=== PATIENT | female | born 1960 | race Caucasian/White ===

== ENCOUNTER 2022-04-29 15:37 | Outpatient (CLI) | payer BC, SELFPAY ==
[2022-04-29 17:27] LABS: Chloride* 93 mmol/L (96-114); Potassium* 3.7 mmol/L (3.6-5.1); Sodium* 126 mmol/L (135-149)
[2022-04-29 17:30] LABS: Carbon Dioxide* 29 mmol/L (20-32); Creatinine* 0.6 mg/dL (0.5-1.5); Estimated Glomerular Filt Rate 102 ml/min
[2022-04-29 17:31] LABS: Blood Urea Nitrogen* 14 mg/dL (7-30); Calcium* 8.1 mg/dL (8.4-10.6)
[2022-04-29 17:45] LABS: Glucose* 628 mg/dL (60-115)
== END 2022-04-29 15:38 | disposition home or self-care (01) ==
PROVIDERS: PCP Family Medicine; Visit Provider Internal Medicine
DX: R60.9 Edema, unspecified (principal)
CPT/HCPCS: 80048

== ENCOUNTER 2022-05-05 09:38 | Outpatient (CLI) | payer BC, SELFPAY ==
[2022-05-05 12:17] LABS: Chloride* 92 mmol/L (96-114)
[2022-05-05 12:18] LABS: Potassium* 3.5 mmol/L (3.6-5.1); Sodium* 126 mmol/L (135-149)
[2022-05-05 12:20] LABS: Creatinine* 0.6 mg/dL (0.5-1.5); Estimated Glomerular Filt Rate 102 ml/min
[2022-05-05 12:21] LABS: Blood Urea Nitrogen* 19 mg/dL (7-30); Calcium* 8.3 mg/dL (8.4-10.6); Carbon Dioxide* 30 mmol/L (20-32)
[2022-05-05 12:32] LABS: Glucose* 600 mg/dL (60-115)
== END 2022-05-05 09:39 | disposition home or self-care (01) ==
PROVIDERS: PCP Family Medicine; Visit Provider Internal Medicine
DX: I10 Essential (primary) hypertension (principal); E11.9 Type 2 diabetes mellitus without complications
CPT/HCPCS: 80048

== ENCOUNTER 2022-05-11 14:03 | Outpatient (CLI) | payer BC, SELFPAY | END 2022-05-11 14:04 | disposition home or self-care (01) | LOC: RAD 14:04 | PROVIDERS: PCP Internal Medicine; Visit Provider Internal Medicine | DX: R01.1 Cardiac murmur, unspecified (principal); I34.0 Nonrheumatic mitral (valve) insufficiency; I31.39 Other pericardial effusion (noninflammatory) | CPT/HCPCS: 93306 ==

== ENCOUNTER 2022-05-12 10:24 | Outpatient (CLI) | payer BC, SELFPAY ==
[2022-05-12 15:08] LABS: Albumin* 2.7 g/dL (3.3-5.0); Chloride* 100 mmol/L (96-114); Potassium* 3.3 mmol/L (3.6-5.1); Sodium* 131 mmol/L (135-149)
[2022-05-12 15:11] LABS: Alanine Aminotransferase* 20 U/L (4-35); Alkaline Phosphatase* 220 U/L (40-150); Aspartate Amino Transferase* 23 U/L (12-35); Bilirubin Total* 0.3 mg/dL (0.1-1.5); Blood Urea Nitrogen* 17 mg/dL (7-30); Carbon Dioxide* 32 mmol/L (20-32); Creatinine* 0.8 mg/dL (0.5-1.5); Estimated Glomerular Filt Rate 84 ml/min; Glucose* 307 mg/dL (60-115); Total Protein* 5.7 g/dL (6.0-8.3)
[2022-05-12 15:12] LABS: Calcium* 7.7 mg/dL (8.4-10.6)
== END 2022-05-12 10:25 | disposition home or self-care (01) ==
LOC: NFLDREF 10:24
PROVIDERS: PCP Internal Medicine; Visit Provider Internal Medicine
DX: E11.9 Type 2 diabetes mellitus without complications (principal); I10 Essential (primary) hypertension
CPT/HCPCS: 80053

== ENCOUNTER 2022-05-22 14:37 | Outpatient (CLI) | payer BC, SELFPAY ==
--- NOTE | 2022-05-22 15:00 | CRLHL7_ITS ---
For Patients: As a result of the Cures Act, medical imaging exams and procedure reports are released immediately into your electronic medical record. You may view this report before your referring provider. If you have questions, please contact your health care provider. INDICATION: Edema. COMPARISON: None. TECHNIQUE: A compression venous ultrasound exam was performed of both lower extremities using santos scale imaging, color Doppler and spectral Doppler analysis. FINDINGS: Right: Sonographic imaging of the right lower extremity demonstrates normal compressibility and color Doppler venous blood flow within the common femoral, deep femoral, and proximal greater saphenous veins. Within the thigh the femoral vein is patent and compressible. At a lower level the popliteal, peroneal, and posterior tibial veins also show normal compressibility and color Doppler venous blood flow. Left: Sonographic imaging of the left lower extremity demonstrates normal compressibility and color Doppler venous blood flow within the common femoral, deep femoral, and proximal greater saphenous veins. Within the thigh the femoral vein is patent and compressible. At a lower level the popliteal, peroneal, and posterior tibial veins also show normal compressibility and color Doppler venous blood flow. IMPRESSION: 1. Negative for acute DVT in the lower extremities. 2. Subcutaneous edema bilaterally. Dictated by Marisa Jaquez MD @ 05/22/2022 7:56:39 PM (Electronically Signed)
== END 2022-05-22 14:38 | disposition home or self-care (01) ==
LOC: US 14:38
PROVIDERS: PCP Internal Medicine; Visit Provider Internal Medicine
DX: R60.9 Edema, unspecified (principal)
CPT/HCPCS: 93970

== ENCOUNTER 2022-05-28 12:24 | Inpatient (IN) | payer BC, SELFPAY ==
[2022-05-28] VITALS (32 sets, daily range): BP systolic 132–211; BP diastolic 85–104; PULSE 88–108; RESP 20–40; TEMP 36.1–36.6; O2SAT 86–92; BMI 29.4; BMI 28.9
--- NOTE | 2022-05-28 13:31 | CRLHL7_ITS ---
For Patients: As a result of the Century Cures Act, medical imaging exams and procedure reports are released immediately into your electronic medical record. You may view this report before your referring provider. If you have questions, please contact your health care provider. Indication: Shortness of breath Comparison: Two-view chest April 29, 2022 Technique: Single AP view chest Findings: There is hyperinflation and chronic interstitial change. There is left basilar pleural effusion. There are markedly increased interstitial markings consistent with pulmonary edema. There is no pneumothorax. The cardiac silhouette is partially obscured. The bony thorax is grossly intact. Impression: Left basilar pleural effusion with diffusely increased interstitial markings likely representing pulmonary edema and/or developing infiltrates. Dictated by Michael Guidry MD @ 05/28/2022 2:54:07 PM (Electronically Signed)
--- NOTE | 2022-05-28 13:33 | ED_ITS ---
HPI - SOB/Dyspnea General Chief Complaint: Shortness of Breath/Dyspnea Stated Complaint: Short of breath, mitral valve leak Time Seen by Provider: 05/28/22 12:30 History of Present Illness HPI Narrative: This 62-year-old female comes in reporting worsening shortness of breath that began last evening. She states that she has shortness of breath even at rest and very significantly with any kind of movement. She states that she did not sleep well last night at all because of shortness of breath. She does have history of CHF with large pedal edema. She states that she had her Lasix increased from 10 mg to 40 mg daily but reports that she still is not urinating frequently. She does not report any fevers. She does have an occasional cough. She denies having any chest pain. She does have a leaky mitral valve. She has a history of smoking and apparently is continuing to smoke. She has poorly controlled diabetes in her history. Related Data Home Medications Medication Instructions Recorded Confirmed aspirin 81 mg tablet,delayed 81 mg PO DAILY 05/12/22 05/28/22 release (Adult Low Dose Aspirin) loratadine 10 mg tablet (Claritin) 10 mg PO DAILY 05/12/22 05/28/22 blood sugar diagnostic (Blood 05/20/22 05/28/22 Glucose Test strips) lisinopril 10 mg tablet 10 mg PO DAILY 05/28/22 05/28/22 Previous Rx's Medication Instructions Recorded pen needle, diabetic 31 gauge x #100 ea 05/11/2207/02 (Comfort EZ Pen [place]) insulin glargine 100 unit/mL (3 20 unit (0.2 mL) subcut QPM DM #15 05/20/22 mL) subcutaneous pen (Lantus mL Solostar U-100 Insulin) flash glucose scanning reader #1 ea 05/27/22 (FreeStyle Liborio 2 [place]) flash glucose sensor (FreeStyle #1 ea 05/27/22 Lib[place] 2 Sensor kit) furosemide 20 mg tablet (Lasix) 20 mg PO BID Edema #90 tabs 05/27/22 glimepiride 4 mg tablet 4 mg PO QAM #90 tabs 05/27/22 metoprolol tartrate 25 mg tablet 12.5 mg PO BID #120 tabs 05/27/22 Allergies Allergy/AdvReac Type Severity Reaction Status Date / Time No Known Drug Allergies Allergy Verified 05/28/22 12:35 Review of Systems Status of ROS: Reports: 10 or more systems reviewed and unremarkable except as noted in History and below Narrative: Constitutional: No fevers, no weight gain or loss. Eyes: No discharge. No vision changes. HENT: No congestion, no sore throat, no ear pain. Cardiovascular: No chest pain, no palpitations. Respiratory: Shortness of breath at rest and certainly with any kind of exertion. Gastrointestinal: No abdominal pain, no vomiting, no diarrhea. Genitourinary: No dysuria, no hematuria. Musculoskeletal: Normal range of motion. Skin: No rashes, no pruritis. Neurological: No dizziness, weakness, sensory change, speech change. Endo/Heme/Allergies: No bruising or bleeding. No polydipsia. Pysch: no suicidality, no anxiety, no insomnia. All other systems reviewed and are negative. [facility] Medical History (Updated 05/28/22 @ 17:33 by Enzo Cota MD) Anemia during (09/26/10) Cellulitis Diabetes Edema Eye swelling Heart murmur History of anemia (09/26/10) Hyperlipidemia (11/11/10) Mitral regurgitation Surgical History (Updated 04/28/22 @ 10:20 by Aylin Lindsey) History of tonsillectomy (09/26/10) Social History Smoking Status: Current every day smoker Do you use any of these nicotine containing products: None How often do you have a drink containing alcohol: monthly or less How many standard drinks containing alcohol do you have on a typical day: 1 or 2 AUDIT-C Alcohol total score: 1 Non-prescribed substance use: denies use Little interest or pleasure in doing things: not at all Feeling down, depressed, or hopeless: several days service: No Exam Narrative: Exam Narrative: Constitutional: Well-developed, well-nourished, no acute distress. HEENT: Normocephalic, atraumatic. Neck: Normal range of motion. Nontender. Supple. Heart: Regular. No murmurs. Normal rate. Intact distal pulses. Lungs: Use of accessory muscles for breathing. Tachypnea. Abdomen: Normal bowel sounds. Nontender. No rebound tenderness. Genitalia: Deferred. Back: No midline tenderness. Normal range of motion. Extremities: Normal range of motion. No injury. Skin: Intact. No rash. Warm. No erythema or pallor. Neurologic: No altered sensation. No weakness. Alert and oriented. Psychiatric: No suicidality. No anxiety or depression. No insomnia. Nursing notes and vitals signs are reviewed. Const: Vital Signs, click to edit/add: Vital Signs - 24 hr 05/28/22 12:36 05/28/22 12:57 05/28/22 12:58 Temperature 96.9 F L Pulse Rate 95 95 Pulse Rate [Right Pulse Oximeter] 99 Respiratory Rate 40 H Blood Pressure 211/104 H Blood Pressure [Le ft Upper Arm] 187/98 H Pulse Oximetry 88 90 92 Oxygen Delivery Me thod Room Air 05/28/22 13:00 05/28/22 13:15 05/28/22 13:30 Temperature Pulse Rate 96 91 94 Pulse Rate [Right Pulse Oximeter] Respiratory Rate Blood Pressure Blood Pressure [Le ft Upper Arm] Pulse Oximetry 91 90 92 Oxygen Delivery Me thod 05/28/22 13:45 05/28/22 14:00 05/28/22 14:15 Temperature Pulse Rate 95 93 95 Pulse Rate [Right Pulse Oximeter] Respiratory Rate Blood Pressure Blood Pressure [Le ft Upper Arm] Pulse Oximetry 90 91 90 Oxygen Delivery Me thod 05/28/22 14:30 05/28/22 14:45 05/28/22 15:00 Temperature Pulse Rate 102 H 99 93 Pulse Rate [Right Pulse Oximeter] Respiratory Rate Blood Pressure Blood Pressure [Le ft Upper Arm] Pulse Oximetry 89 87 L 89 Oxygen Delivery Me thod 05/28/22 15:15 05/28/22 15:16 Temperature Pulse Rate 98 97 Pulse Rate [Right Pulse Oximeter] Respiratory Rate Blood Pressure 144/94 H Blood Pressure [Le ft Upper Arm] Pulse Oximetry 92 89 Oxygen Delivery Me thod Course Vital Signs Vital signs: Initial Vital Signs Temperature 96.9 F L 05/28/22 12:36 Temperature Source Temporal Artery Scan 05/28/22 12:36 Pulse Rate 99 05/28/22 12:36 Pulse Rhythm 05/28/22 12:36 Respiratory Rate 40 H 05/28/22 12:36 Blood Pressure 187/98 H 05/28/22 12:36 Blood Pressure Mean 127 05/28/22 12:36 Pulse Oximetry 88 05/28/22 12:36 Oxygen Delivery Method 05/28/22 12:36 Vital Signs Temperature 96.9 F L 05/28/22 12:36 Pulse Rate 99 05/28/22 12:36 Respiratory Rate 40 H 05/28/22 12:36 Blood Pressure 187/98 H 05/28/22 12:36 Pulse Oximetry 88 05/28/22 12:36 Oxygen Delivery Method 05/28/22 12:36 Temperature 96.9 F L 05/28/22 12:36 Pulse Rate 97 05/28/22 15:16 Respiratory Rate 40 H 05/28/22 12:36 Blood Pressure 144/94 H 05/28/22 15:16 Pulse Oximetry 89 05/28/22 15:16 Oxygen Delivery Method 05/28/22 12:36 MDM - SOB/Dyspnea Lab Data Labs: Lab Results 05/28/22 05/28/22 05/28/22 Range/Units 13:32 13:33 13:50 WBC 11.27 H (4.50-11.00) K/uL RBC 3.89 L (4.00-5.20) m/uL Hgb 11.8 L (12.0-16.0) gm/dL Hct 35.1 (33.0-51.0) % MCV 90 (80-100) fL MCH 30 (26-34) pg MCHC 34 (32-36) gm/dL RDW Coeff of Yefri 12.4 (11.5-15.5) % Plt Count 514 H (140-440) K/uL Neut % (Auto) 79.9 H (42.0-72.0) % Lymph % (Auto) 11.7 L (20-44) % Sumner % (Auto) 5.2 (0.0-11.0) % Eos % (Auto) 1.9 (0.0-7.0) % Baso % (Auto) 0.4 (0.0-3.0) % Neut # (Auto) 9.00 H (1.7-7.0) K/uL Lymph # (Auto) 1.30 (0.90-2.90) K/uL [place]ner # (Auto) 0.60 (0.00-0.90) K/UL Eos # (Auto) 0.20 (0.00-0.50) K/uL Baso # (Auto) 0.00 (0.00-0.30) K/uL D-Dimer Quant (PE/DVT) (0.00-0.50) ug/ml Sodium (135-149) mmol/L Potassium (3.6-5.1) mmol/L Chloride (96-114) mmol/L Carbon Dioxide (20-32) mmol/L BUN (7-30) mg/dL Creatinine (0.5-1.5) mg/dL Estimated Creat Clear Estimated GFR ml/min Glucose (60-115) mg/dL Calcium (8.4-10.6) mg/dL C-Reactive Protein (0.5-1.0) mg/dL NT-Pro-B Natriuret Pep pg/mL SARS-CoV-2 (PCR) Negative SARS-CoV-2 (Negative) Influenza Type A (PCR) Negative PCR FLU A (Negative) Influenza Type B (PCR) Negative PCR FLU B (Negative) POC Troponin I 0.01 (0.01-0.04) ng/ml 05/28/22 05/28/22 05/28/22 Range/Units 13:50 13:50 13:50 WBC (4.50-11.00) K/uL RBC (4.00-5.20) m/uL Hgb (12.0-16.0) gm/dL Hct (33.0-51.0) % MCV (80-100) fL MCH (26-34) pg MCHC (32-36) gm/dL RDW Coeff of Yefri (11.5-15.5) % Plt Count (140-440) K/uL Neut % (Auto) (42.0-72.0) % Lymph % (Auto) (20-44) % Sumner % (Auto) (0.0-11.0) % Eos % (Auto) (0.0-7.0) % Baso % (Auto) (0.0-3.0) % Neut # (Auto) (1.7-7.0) K/uL Lymph # (Auto) (0.90-2.90) K/uL [place]ner # (Auto) (0.00-0.90) K/UL Eos # (Auto) (0.00-0.50) K/uL Baso # (Auto) (0.00-0.30) K/uL D-Dimer Quant (PE/DVT) 1.63 H (0.00-0.50) ug/ml Sodium 132 L (135-149) mmol/L Potassium 3.5 L (3.6-5.1) mmol/L Chloride 100 (96-114) mmol/L Carbon Dioxide 28 (20-32) mmol/L BUN 16 (7-30) mg/dL Creatinine 0.7 (0.5-1.5) mg/dL Estimated Creat Clear 46.73 Estimated GFR 98 ml/min Glucose 162 H (60-115) mg/dL Calcium 8.3 L (8.4-10.6) mg/dL C-Reactive Protein 7.3 H (0.5-1.0) mg/dL NT-Pro-B Natriuret Pep 5400 pg/mL SARS-CoV-2 (PCR) (Negative) Influenza Type A (PCR) (Negative) Influenza Type B (PCR) (Negative) POC Troponin I (0.01-0.04) ng/ml Imaging Data Chest x-ray: Radiologist's impression: Left basilar pleural effusion with diffusely increased interstitial markings likely representing pulmonary edema and/or developing infiltrates. CT scan - chest: Radiologist's impression: No pulmonary embolism identified. Moderate bilateral pleural effusions. Upper lobe predominant patchy ground-glass opacities most likely related to pulmonary edema, or less likely multifocal infection or inflammation. ECG Data Attestation: I personally reviewed and interpreted this ECG as follows: Interpretation: Normal sinus rhythm. Rate is 92 beats per minute. There are no ST or T-wave abnormalities. Discharge Plan Discharge Clinical Impression: Congestive heart failure Patient Disposition: Admitted As Inpatient Condition: Unchanged Prescriptions: No Action loratadine [Claritin] 10 mg tablet 10 mg PO DAILY aspirin [Adult Low Dose Aspirin] 81 mg tablet,delayed release (DR/EC) 81 mg PO DAILY furosemide [Lasix] 20 mg tablet 20 mg PO BID Qty: 90 3RF glimepiride 4 mg tablet 4 mg PO QAM Qty: 90 0RF Rx Instructions: administer with breakfast metoprolol tartrate 25 mg tablet 12.5 mg PO BID Qty: 120 0RF (DME) Blood Glucose Test Strip See Rx Instructions .Route Rx Instructions: Use to check blood glucose 3 times daily insulin glargine [Lantus Solostar U-100 Insulin] 100 unit/mL (3 mL) insulin pen 20 unit subcut QPM Qty: 15 0RF lisinopril 10 mg tablet 10 mg PO DAILY (DME) pen needle, diabetic [Comfort EZ Pen [place]] 31 gauge x 3/16 needle See Rx Instructions .Route Qty: 100 3RF Rx Instructions: Patient to use BID (DME) FreeStyle Liborio 2 [place] Misc See Rx Instructions .Route Qty: 1 0RF Rx Instructions: As directed (DME) FreeStyle Liborio 2 Sensor Kit See Rx Instructions .Route Qty: 1 0RF Rx Instructions: As directed Follow Up/Referrals: Carlin Trinh MD [Primary Care Provider] -
[2022-05-28 14:03] LABS: Troponin, Point-of-Care* 0.01 ng/ml (0.01-0.04)
[2022-05-28] MEDS: FUROSEMIDE 10 MG/ML inj 40 MG IVP ×2 (14:11→19:12)
[2022-05-28 14:15] LABS: Basophils Percent Auto 0.4 % (0.0-3.0); Eosinophils Percent Auto 1.9 % (0.0-7.0); Hematocrit 35.1 % (33.0-51.0); Hemoglobin* 11.8 gm/dL (12.0-16.0); Immature Granulocytes Pct Auto 0.9 %; Lymphocytes Percent Auto 11.7 % (20-44); Mean Corpuscular HGB Conc 34 gm/dL (32-36); Mean Corpuscular Hemoglobin 30 pg (26-34); Mean Corpuscular Volume 90 fL (80-100); Monocytes Percent Auto 5.2 % (0.0-11.0); Neutrophils Percent Auto 79.9 % (42.0-72.0); Platelet Count* 514 K/uL (140-440); RDW Coefficient of Variation % 12.4 % (11.5-15.5); Red Blood Count 3.89 m/uL (4.00-5.20); White Blood Count* 11.27 K/uL (4.50-11.00)
[2022-05-28 14:16] LABS: PCR FLU A Negative PCR FLU A (Negative); PCR FLU B Negative PCR FLU B (Negative)
[2022-05-28 14:17] LABS: Slide Review Reflex No
[2022-05-28 14:21] LABS: D Dimer Quantitative* 1.63 ug/ml (0.00-0.50)
[2022-05-28 14:28] LABS: SARS PCR* Negative SARS-CoV-2 (Negative)
[2022-05-28 14:40] LABS: NT Pro B Type NatriureticPept* 5400 pg/mL
--- NOTE | 2022-05-28 14:51 | CRLHL7_ITS ---
For Patients: As a result of the Century Cures Act, medical imaging exams and procedure reports are released immediately into your electronic medical record. You may view this report before your referring provider. If you have questions, please contact your health care provider. INDICATION: SHORT OF BREATH, ELEVATED D DIMER. TECHNIQUE: CT chest PE was acquired with 100 cc Omnipaque 350 IV contrast. COMPARISON: None. FINDINGS: Heart and vasculature: Contrast opacification of the pulmonary arterial tree is adequate. No sign of pulmonary embolism. Heart size is normal. Thoracic aorta and pulmonary artery are normal in caliber.Coronary artery calcifications are noted. Moderate stenosis of the proximal left subclavian artery. Lungs and pleura: Peripheral reticular opacities likely related to underlying lung scarring. Bilateral upper lobe ground-glass patchy opacities. Moderate bilateral pleural effusions. Adjacent mild compressive atelectasis. Lymph nodes/mediastinum: No mediastinal, hilar, or axillary adenopathy. Chest wall: No masses. Upper abdomen: No acute or significant findings. Bones: Unremarkable for age. IMPRESSION: No pulmonary embolism identified. Moderate bilateral pleural effusions. Upper lobe predominant patchy ground-glass opacities most likely related to pulmonary edema, or less likely multifocal infection or inflammation. Please note that all CT scans at this facility use dose modulation, iterative reconstruction, and/or weight-based dosing when appropriate to reduce radiation dose to as low as reasonably achievable. Dictated by Arsalan Dowell MD @ 05/28/2022 5:27:08 PM (Electronically Signed)
[2022-05-28 15:25] LABS: Chloride* 100 mmol/L (96-114); Potassium* 3.5 mmol/L (3.6-5.1); Sodium* 132 mmol/L (135-149)
[2022-05-28 15:28] LABS: Blood Urea Nitrogen* 16 mg/dL (7-30); Carbon Dioxide* 28 mmol/L (20-32); Creatinine* 0.7 mg/dL (0.5-1.5); Est. Creatinine Clearance* 46.73; Estimated Glomerular Filt Rate 98 ml/min
[2022-05-28 15:29] LABS: Calcium* 8.3 mg/dL (8.4-10.6); Glucose* 162 mg/dL (60-115)
[2022-05-28 15:31] LABS: C Reactive Protein* 7.3 mg/dL (0.5-1.0)
--- NOTE | 2022-05-28 17:46 | P.IMHP_ITS ---
Hospitalist- H&P: SHELIA History of Present Illness Date Seen: 05/28/22 Chief complaint: Short of breath, mitral valve leak Narrative: Twila Bryant is a 62 year old female admitted through the emergency department with progressive edema over the past 6+ weeks and 2 days of dyspnea. Patient reports that starting before Goldy she was noting swelling in her feet and ankles bilaterally. This is gotten progressively worse over the last 6 weeks or so. She was started on furosemide 10 mg daily. This did not seem to help. The dose was increased gradually to 20 mg twice a day yesterday. Yesterday she noted increased trouble breathing. She had orthopnea and nocturnal dyspnea she was not not able to sleep well last night. Because that she came to the emergency room. She has no previous history of diagnosis of heart failure. On 05/11/2022 she had an echocardiogram which showed normal left ventricular size and function with an ejection fraction of 65-70%. She had normal right ventricular size and function. Aortic valve was sclerotic without stenosis. The mitral valve is tethered with moderate mitral regurgitation. She was referred to Cardiology for her mitral regurgitation and has an appointment on June 26. She has a previous history of SVT. There was an attempt at ablation for this years ago which was apparently unsuccessful though she reports that she has not had an episode of SVT in years. She is not aware of palpitations or tachy dysrhythmia. She does not have a history of coronary disease. She has not had any chest pain. She has not had cold or cough or fever. She has been smoking for about 40 years half pack of cigarettes per day but does not have a diagnosis of COPD. She has diabetes mellitus. Blood sugars have been poorly controlled until recently when her blood sugars have been better controlled and occasionally too low. When she woke up this morning her blood sugar was 59. Three weeks ago she was started on Lantus 10 units at bedtime. That has been increased to 20 units at bedtime. She also takes glimepiride 4 mg daily. Review of Systems Narrative: She reports he is generally doing well other than her edema and shortness of breath. No other symptoms of illness. [facility] Medical History Anemia during (09/26/10) Cellulitis Diabetes Edema Eye swelling Heart murmur History of anemia (09/26/10) Hyperlipidemia (11/11/10) Hypertension Mitral regurgitation Subclavian steal syndrome Supraventricular tachycardia (09/26/10) Tobacco use (09/26/10) Surgical History (Updated 05/28/22 @ 17:57 by Shan Bhatt MD) History of tonsillectomy (09/26/10) History of wisdom tooth extraction Social History (Updated 05/28/22 @ 18:00 by Shan Bhatt MD) Narrative: She lives in [place] with her . She works at [employer], a division of [employer]. She smokes a half pack of cigarettes a day. She drinks alcohol a couple times a month. Her or her daughter, Viv Francois of [place], are healthcare larry of contract attorney. Code status is full Smoking Status: Current every day smoker Do you use any of these nicotine containing products: None How often do you have a drink containing alcohol: monthly or less How many standard drinks containing alcohol do you have on a typical day: 1 or 2 AUDIT-C Alcohol total score: 1 Non-prescribed substance use: denies use Little interest or pleasure in doing things: not at all Feeling down, depressed, or hopeless: several days service: No Meds Home Medications and Allergies Home Medications Medication Instructions Recorded Confirmed Type aspirin 81 mg tablet,delayed 81 mg PO DAILY 05/12/22 05/28/22 History release (Adult Low Dose Aspirin) loratadine 10 mg tablet (Claritin) 10 mg PO DAILY 05/12/22 05/28/22 History blood sugar diagnostic (Blood 05/20/22 05/28/22 History Glucose Test strips) lisinopril 10 mg tablet 10 mg PO DAILY 05/28/22 05/28/22 History Allergies Allergy/AdvReac Type Severity Reaction Status Date / Time No Known Drug Allergies Allergy Verified 05/28/22 12:35 Allergies/Adverse Reaction Comments: Metformin caused intractable nausea Exam Narrative: Exam Narrative: She is alert and appears in no distress. She gives her own history. Eyes are normal. Oropharynx with dry mucous membranes. Neck is supple she has mild jugular venous distension. No mass. Respirations with diminished breath sounds and bibasilar crackles. Cardiovascular: S1, S2, 1/6 systolic murmur. No gallop or rub. Abdomen: Bowel sounds active. Abdomen is soft without tenderness or mass. External genitalia normal. Extremities with 3+ edema in both legs up to the knees. Intact pedal pulses. Const: Vital Signs, click to edit/add: Vital Signs - 24 hr 05/28/22 12:36 05/28/22 12:57 05/28/22 12:58 Temperature 96.9 F L Pulse Rate 95 95 Pulse Rate [Right Pulse Oximeter] 99 Respiratory Rate 40 H Blood Pressure 211/104 H Blood Pressure [Le ft Upper Arm] 187/98 H Pulse Oximetry 88 90 [facility] 05/28/22 13:00 05/28/22 13:15 05/28/22 13:30 Temperature Pulse Rate 96 91 94 Pulse Rate [Right Pulse Oximeter] Respiratory Rate Blood Pressure Blood Pressure [Le ft Upper Arm] Pulse Oximetry 91 90 92 [facility] 05/[facility]/22 13:45 05/28/22 14:00 05/28/22 14:15 Temperature Pulse Rate 95 93 95 Pulse Rate [Right Pulse Oximeter] Respiratory Rate Blood Pressure Blood Pressure [Le ft Upper Arm] Pulse Oximetry 90 91 90 [facility] 05/[facility]/22 14:30 05/28/22 14:45 05/28/22 15:00 Temperature Pulse Rate 102 H 99 93 Pulse Rate [Right Pulse Oximeter] Respiratory Rate Blood Pressure Blood Pressure [Le ft Upper Arm] Pulse Oximetry 89 87 L [facility] 05/[facility]/22 15:15 05/28/22 15:16 05/28/22 15:17 Temperature Pulse Rate 98 97 97 Pulse Rate [Right Pulse Oximeter] Respiratory Rate Blood Pressure 144/94 H Blood Pressure [Le ft Upper Arm] Pulse Oximetry 92 89 90 [facility] 05/28/22 15:34 05/28/22 15:35 05/28/22 16:00 Temperature Pulse Rate 105 H 108 H 101 H Pulse Rate [Right Pulse Oximeter] Respiratory Rate Blood Pressure Blood Pressure [Le ft Upper Arm] Pulse Oximetry 88 86 L 87 L [facility] 05/28/22 16:02 05/28/22 16:15 05/28/22 16:30 Temperature Pulse Rate 102 H 94 95 Pulse Rate [Right Pulse Oximeter] Respiratory Rate Blood Pressure 132/89 Blood Pressure [Le ft Upper Arm] Pulse Oximetry 88 90 90 [facility] 05[facility]22 16:31 05/28/22 16:45 05/28/22 17:00 Temperature Pulse Rate 96 92 96 Pulse Rate [Right Pulse Oximeter] Respiratory Rate Blood Pressure 152/89 H Blood Pressure [Le ft Upper Arm] Pulse Oximetry 90 89 89 Oxygen Delivery Me thod 05/28/22 17:01 05/28/22 17:15 05/28/22 17:30 Temperature Pulse Rate 96 97 104 H Pulse Rate [Right Pulse Oximeter] Respiratory Rate Blood Pressure 149/89 H Blood Pressure [Le ft Upper Arm] Pulse Oximetry 89 90 87 L Oxygen Delivery Me thod 05/28/22 17:32 Temperature Pulse Rate 104 H Pulse Rate [Right Pulse Oximeter] Respiratory Rate Blood Pressure 156/85 H Blood Pressure [Le ft Upper Arm] Pulse Oximetry 87 L Oxygen Delivery Me thod Documenting provider has reviewed patient's vital signs: yes Hospitalist - H&P: Result Labs Labs: Short CBC 05/28/22 Range/Units 13:50 WBC 11.27 H (4.50-11.00) K/uL Hgb 11.8 L (12.0-16.0) gm/dL Hct 35.1 (33.0-51.0) % Plt Count 514 H (140-440) K/uL BMP 05/28/22 13:50 Sodium 132 L Potassium 3.5 L Chloride 100 Carbon Dioxide 28 BUN 16 Creatinine 0.7 Glucose 162 H Calcium 8.3 L Assessment and Plan Assessment and plan (1) Congestive heart failure: Problem comment: Patient has pulmonary edema, bilateral pleural effusions, lower extremity edema, orthopnea and PND. All suggest biventricular heart failure. Will provide IV furosemide tonight then increase oral furosemide tomorrow. Will also increase her beta-emmie as her blood pressure and pulse are both elevated. Replace potassium. Status: Acute (2) Mitral regurgitation: Problem comment: Follow-up with cardiology on June 26. Medical management in the meantime Status: Acute (3) Diabetes: Problem comment: Monitor blood sugars and adjust treatment. Status: Acute (4) Hypertension: Problem comment: Increase metoprolol due to hypertension and tachycardia. Increased diuresis should also help Status: Acute (5) Tobacco use: Problem comment: Recommend smoking cessation Status: Acute (6) Hyperlipidemia: Problem comment: Recommend statin Status: Acute Plan Patient is admitted to the hospital for diuresis. Anticipate discharge in the next 1-2 days. Will need increased dose of furosemide, possibly 40 mg twice daily along with supplemental potassium. Increase metoprolol as well to achieve some beta blockade. Recommend smoking cessation and statin therapy. Monitor and manage blood sugars. Total time today is 75 minutes, 45 minutes in coordination of care discussing with patient and other providers management of heart failure and vascular risk factors
[2022-05-28 18:06] LABS: Magnesium* 2.1 mg/dL (1.5-2.6)
[2022-05-28] MEDS: NICOTINE 14 mg PATCH 1 PATCH TRANSDERMA (19:11)
[2022-05-28] MEDS: POTASSIUM BICARB 25 MEQ EFFERVESCENT TAB 50 MEQ PO ×2 (19:12→20:52)
[2022-05-28] MEDS: POTASSIUM CHLORIDE 10 MEQ CAPSULE ER PO (19:12)
--- NOTE | 2022-05-28 19:37 | PC.NURSE ---
shift note: pt admit to rm 256 via wc. pt appears sob at rest. RR36/min. LS with crkls bibasilar. pt has dry cough. Pt denies c.p or pressure. pt has tele in place. cont sats in place with sats reading 92% on RA. IV to rt AC intact/patent. Bilat l/e with 4+ pitting edema. Report given to Regan BURGESS
[2022-05-28] MEDS: METOPROLOL TARTRATE 25 MG TABLET PO (20:53)
[2022-05-28] MEDS: SODIUM CHLORIDE 0.9 % (FLUSH) 10 ML SYRINGE 5 ML IVF (20:53)
[2022-05-29] VITALS (12 sets, daily range): BP systolic 103–134; BP diastolic 63–87; PULSE 78–93; RESP 16–20; TEMP 36.6–37.2; O2SAT 88–93; BMI 28.4
--- NOTE | 2022-05-29 04:34 | PC.NURSE ---
pt blood glucose unstable after HS. Final result after meal is 110 at 3am. Previous two readings were 79 and 59. Denies pain or discomfort. BLE 2+ edema. Up to the bathroom with SBA. No signs of SOB.
[2022-05-29 06:49] LABS: Basophils Absolute Auto 0.03 K/uL (0.00-0.30); Basophils Percent Auto 0.4 % (0.0-3.0); Eosinophils Percent Auto 2.6 % (0.0-7.0); Hematocrit 27.9 % (33.0-51.0); Hemoglobin* 9.4 gm/dL (12.0-16.0); Immature Granulocytes Abs Auto 0.01 K/uL (0.00-0.30); Immature Granulocytes Pct Auto 0.1 %; Lymphocytes Percent Auto 20.6 % (20-44); Mean Corpuscular HGB Conc 34 gm/dL (32-36); Mean Corpuscular Hemoglobin 31 pg (26-34); Mean Corpuscular Volume 91 fL (80-100); Monocytes Percent Auto 7.6 % (0.0-11.0); Neutrophils Absolute Auto 5.35 K/uL (1.7-7.0); Neutrophils Percent Auto 68.7 % (42.0-72.0); Platelet Count* 524 K/uL (140-440); RDW Coefficient of Variation % 12.6 % (11.5-15.5); Red Blood Count 3.07 m/uL (4.00-5.20); White Blood Count* 7.78 K/uL (4.50-11.00)
[2022-05-29 06:56] LABS: Slide Review Reflex No
[2022-05-29 06:59] LABS: Chloride* 102 mmol/L (96-114); Potassium* 3.4 mmol/L (3.6-5.1); Sodium* 133 mmol/L (135-149)
[2022-05-29 07:02] LABS: Creatinine* 0.9 mg/dL (0.5-1.5); Est. Creatinine Clearance* 46.73; Estimated Glomerular Filt Rate 73 ml/min
[2022-05-29 07:03] LABS: Blood Urea Nitrogen* 16 mg/dL (7-30); Calcium* 7.6 mg/dL (8.4-10.6); Carbon Dioxide* 30 mmol/L (20-32); Glucose* 84 mg/dL (60-115)
[2022-05-29 07:06] LABS: C Reactive Protein* 5.8 mg/dL (0.5-1.0)
--- NOTE | 2022-05-29 07:47 | P.IMPN_ITS ---
Progress Note: A&P Assessment and plan (1) Congestive heart failure: Problem details: - on admission, noted to have pulmonary edema, bilateral pleural effusions, lower extremity edema, orthopnea and PND - IV Furosemide given in ED and upon admission - Increase home dose of Lasix, add low dose Spironolactone as well with close monitoring of electrolytes - Increase home dose of Metoprolol - has outpatient Cardiology f/u scheduled in June Status: Acute (2) Mitral regurgitation: Problem details: TTE 04/2022: Final Impressions: 1. Normal LV size, mildly increased wall thickness, normal global systolic function with an estimated EF of 65 - 70%. 2. Right ventricular cavity size is normal, global systolic RV function is normal. 3. Normal left atrium size. 4. The aortic valve is sclerotic, no stenosis and trivial regurgitation. 5. The mitral valve is tethered, moderate mitral regurgitation. 6. Tricuspid valve is normal. 7. Trivial pericardial effusion. - Follow-up with cardiology on June 26, medical management in the meantime Status: Acute (3) Diabetes: Problem details: - A1C >15 in April 2022 - Continue accuchecks, home medications, SSI - amenable to seeing Nutrition team Status: Acute (4) Hypertension: Problem details: - Metoprolol increased 05/28 - Anticipate improvement with increased dose of BB + increased diuretics Status: Acute (5) Tobacco use: Problem details: - Patch in place, recommend smoking cessation Status: Acute Plan - per above - Lovenox for ppx - likely home tomorrow if continued diuresis and improved symptoms on new diuretic regimen Subjective Date Seen: 05/29/22 Interval history: Twila was noted to be hypoglycemic overnight, improved with po intake. Patient's blood pressure and pulse are within normal limits this morning. She is having intermittent dyspnea, but otherwise has no concerns for hospitalist team. Exam Narrative: Exam Narrative: GEN: Alert and oriented, sitting comfortably in bedside chair and having breakfast when I see her HEENT: EOMIs bilaterally, no scleral icterus CV: RRR, systolic murmur heard best at left sternal border without radiation R: LCTA bilaterally without concerning wheezing, + bibasilar rales Ext: + edema, wearing compression stocking Skin: No concerning skin lesions or rashes on exposed skin Neuro: No focal deficits or resting tremor Psych: Appropriate Const: Vital Signs, click to edit/add: Vital Signs - 24 hr 05/28/22 12:36 05/28/22 12:57 05/28/22 12:58 Temperature 96.9 F L Pulse Rate 95 95 Pulse Rate [Brachi al] Pulse Rate [Pulse Oximeter] Pulse Rate [Right Pulse Oximeter] 99 Respiratory Rate 40 H Blood Pressure 211/104 H Blood Pressure [Le ft Arm] Blood Pressure [Le ft Upper Arm] 187/98 H Pulse Oximetry 88 90 92 Oxygen Delivery [facility] Room Air 05/28/22 13:00 05/28/22 13:15 05/28/22 13:30 Temperature Pulse Rate 96 91 94 Pulse Rate [Brachi al] Pulse Rate [Pulse Oximeter] Pulse Rate [Right Pulse Oximeter] Respiratory Rate Blood Pressure Blood Pressure [Le ft Arm] Blood Pressure [Le ft Upper Arm] Pulse Oximetry 91 90 92 [facility] 05/28/22 13:45 05/28/22 14:00 05/28/22 14:15 Temperature Pulse Rate 95 93 95 Pulse Rate [Brachi al] Pulse Rate [Pulse Oximeter] Pulse Rate [Right Pulse Oximeter] Respiratory Rate Blood Pressure Blood Pressure [Le ft Arm] Blood Pressure [Le ft Upper Arm] Pulse Oximetry 90 91 90 [facility] 05/28/22 14:30 05/28/22 14:45 05/28/22 15:00 Temperature Pulse Rate 102 H 99 93 Pulse Rate [Brachi al] Pulse Rate [Pulse Oximeter] Pulse Rate [Right Pulse Oximeter] Respiratory Rate Blood Pressure Blood Pressure [Le ft Arm] Blood Pressure [Le ft Upper Arm] Pulse Oximetry 89 87 L 89 Oxygen Delivery [facility] 05/28/22 15:15 05/28/22 15:16 05/28/22 15:17 Temperature Pulse Rate 98 97 97 Pulse Rate [Brachi al] Pulse Rate [Pulse Oximeter] Pulse Rate [Right Pulse Oximeter] Respiratory Rate Blood Pressure 144/94 H Blood Pressure [Le ft Arm] Blood Pressure [Le ft Upper Arm] Pulse Oximetry 92 89 90 [facility] 05/28/22 15:34 05/28/22 15:35 05/28/22 16:00 Temperature Pulse Rate 105 H 108 H 101 H Pulse Rate [Brachi al] Pulse Rate [Pulse Oximeter] Pulse Rate [Right Pulse Oximeter] Respiratory Rate Blood Pressure Blood Pressure [Le ft Arm] Blood Pressure [Le ft Upper Arm] Pulse Oximetry 88 86 L 87 L [facility] 05/28/22 16:02 05/28/22 16:15 05/28/22 16:30 Temperature Pulse Rate 102 H 94 95 Pulse Rate [Brachi al] Pulse Rate [Pulse Oximeter] Pulse Rate [Right Pulse Oximeter] Respiratory Rate Blood Pressure 132/89 Blood Pressure [Le ft Arm] Blood Pressure [Le ft Upper Arm] Pulse Oximetry 88 90 90 Oxygen Delivery [facility] 05/28/22 16:31 05/28/22 16:45 05/28/22 17:00 Temperature Pulse Rate 96 92 96 Pulse Rate [Brachi al] Pulse Rate [Pulse Oximeter] Pulse Rate [Right Pulse Oximeter] Respiratory Rate Blood Pressure 152/89 H Blood Pressure [Le ft Arm] Blood Pressure [Le ft Upper Arm] Pulse Oximetry 90 89 89 Oxygen Delivery [facility] 05/28/22 17:01 05/28/22 17:15 05/28/22 17:30 Temperature Pulse Rate 96 97 104 H Pulse Rate [Brachi al] Pulse Rate [Pulse Oximeter] Pulse Rate [Right Pulse Oximeter] Respiratory Rate Blood Pressure 149/89 H Blood Pressure [Le ft Arm] Blood Pressure [Le ft Upper Arm] Pulse Oximetry 89 90 87 L Oxygen Delivery [facility] 05/28/22 17:32 05/28/22 18:24 05/28/22 18:35 Temperature 97.8 F Pulse Rate 104 H Pulse Rate [Brachi al] 102 H Pulse Rate [Pulse Oximeter] Pulse Rate [Right Pulse Oximeter] Respiratory Rate 36 H 36 H Blood Pressure 156/85 H Blood Pressure [Le ft Arm] 149/94 H Blood Pressure [Le ft Upper Arm] Pulse Oximetry 87 L 92 92 Oxygen Delivery [facility] Room Air Room Air 05/28/22 19:59 05/28/22 20:04 05/29/22 00:21 Temperature 97.9 F 97.9 F Pulse Rate 88 Pulse Rate [Brachi al] Pulse Rate [Pulse Oximeter] 98 81 Pulse Rate [Right Pulse Oximeter] Respiratory Rate 20 18 Blood Pressure Blood Pressure [Le ft Arm] 141/87 H 121/71 Blood Pressure [Le ft Upper Arm] Pulse Oximetry 92 93 Oxygen Delivery [facility] Room Air Room Air 05/29/22 00:28 05/29/22 04:05 05/29/22 05:13 Temperature 97.8 F Pulse Rate 79 78 Pulse Rate [Brachi al] Pulse Rate [Pulse Oximeter] 80 Pulse Rate [Right Pulse Oximeter] Respiratory Rate 16 Blood Pressure Blood Pressure [Le ft Arm] 103/63 Blood Pressure [Le ft Upper Arm] Pulse Oximetry 90 Oxygen Delivery [facility] Room Air 05/29/22 07:09 Temperature Pulse Rate 81 Pulse Rate [Brachi al] Pulse Rate [Pulse Oximeter] Pulse Rate [Right Pulse Oximeter] Respiratory Rate Blood Pressure Blood Pressure [Le ft Arm] Blood Pressure [Le ft Upper Arm] Pulse Oximetry Oxygen Delivery [facility] Labs Labs: Laboratory Results - last 24 hr 05/28/22 05/28/22 05/28/22 13:32 13:33 13:50 WBC 11.27 H RBC 3.89 L Hgb 11.8 L Hct 35.1 MCV 90 MCH 30 MCHC 34 RDW Coeff of Yefri 12.4 Plt Count 514 H Neut % (Auto) 79.9 H Lymph % (Auto) 11.7 L Falls % (Auto) 5.2 Eos % (Auto) 1.9 Baso % (Auto) 0.4 Neut # (Auto) 9.00 H Lymph # (Auto) 1.30 Falls # (Auto) 0.60 Eos # (Auto) 0.20 Baso # (Auto) 0.00 D-Dimer Quant (PE/DVT) Sodium Potassium Chloride Carbon Dioxide BUN Creatinine Estimated Creat Clear Estimated GFR Glucose Calcium Magnesium C-Reactive Protein NT-Pro-B Natriuret Pep SARS-CoV-2 (PCR) Negative SARS-CoV-2 Influenza Type A (PCR) Negative PCR FLU A Influenza Type B (PCR) Negative PCR FLU B POC Troponin I 0.01 05/28/22 05/28/22 05/28/22 13:50 13:50 13:50 WBC RBC Hgb Hct MCV MCH MCHC RDW Coeff of Yefri Plt Count Neut % (Auto) Lymph % (Auto) Falls % (Auto) Eos % (Auto) Baso % (Auto) Neut # (Auto) Lymph # (Auto) Falls # (Auto) Eos # (Auto) Baso # (Auto) D-Dimer Quant (PE/DVT) 1.63 H Sodium 132 L Potassium 3.5 L Chloride 100 Carbon Dioxide 28 BUN 16 Creatinine 0.7 Estimated Creat Clear 46.73 Estimated GFR 98 Glucose 162 H Calcium 8.3 L Magnesium 2.1 C-Reactive Protein 7.3 H NT-Pro-B Natriuret Pep 5400 SARS-CoV-2 (PCR) Influenza Type A (PCR) Influenza Type B (PCR) POC Troponin I 05/29/22 05/29/22 05:58 05:58 WBC 7.78 RBC 3.07 L Hgb 9.4 L Hct 27.9 L MCV 91 MCH 31 MCHC 34 RDW Coeff of Yefri 12.6 Plt Count 524 H Neut % (Auto) 68.7 Lymph % (Auto) 20.6 Falls % (Auto) 7.6 Eos % (Auto) 2.6 Baso % (Auto) 0.4 Neut # (Auto) 5.35 Lymph # (Auto) 1.60 Falls # (Auto) 0.60 Eos # (Auto) 0.20 Baso # (Auto) 0.03 D-Dimer Quant (PE/DVT) Sodium 133 L Potassium 3.4 L Chloride 102 Carbon Dioxide 30 BUN 16 Creatinine 0.9 Estimated Creat Clear 46.73 Estimated GFR 73 Glucose 84 Calcium 7.6 L Magnesium C-Reactive Protein 5.8 H NT-Pro-B Natriuret Pep SARS-CoV-2 (PCR) Influenza Type A (PCR) Influenza Type B (PCR) POC Troponin I
[2022-05-29] MEDS: lisinopriL 10 MG TABLET PO (08:46)
[2022-05-29] MEDS: ASPIRIN 81 MG TABLET EC PO (08:46)
[2022-05-29] MEDS: METOPROLOL TARTRATE 25 MG TABLET PO ×2 (08:46→20:39)
[2022-05-29] MEDS: FUROSEMIDE 40 MG TABLET PO ×2 (08:46→15:38)
[2022-05-29] MEDS: GLIMEPIRIDE 4 MG TABLET PO (08:47)
[2022-05-29] MEDS: POTASSIUM CHLORIDE 10 MEQ CAPSULE ER PO ×2 (08:47→18:08)
[2022-05-29] MEDS: LORATADINE 10 MG TABLET PO (08:47)
[2022-05-29] MEDS: SODIUM CHLORIDE 0.9 % (FLUSH) 10 ML SYRINGE 5 ML IVF ×2 (09:00→20:40)
--- NOTE | 2022-05-29 15:23 | PC.NURSE ---
Pt had 680 in orally and 400 plus 2 unmeasured voids out on day shift. Twila denies pain. Excellent appetite. Tele indicates NSR. in to visit with patient. Please see eMar for meds given on day shift. Pt walked in hallway with aides after lunch my legs felt weak and tingly. Pt's BG levels were monitored frequently on day shift d/to her c/o visual changes, shakiness. No SS insulin given on day shift. Pt did get Amaryl PO. BG prior to bkfst 59, one hour later BG 97 @0830,BG 130 @ 0935 and prior to lunch 142. Report to Rafal BURGESS for evening shift.
[2022-05-29] MEDS: SPIRONOLACTONE 25 MG TABLET PO (15:38)
[2022-05-29] MEDS: ENOXAPARIN 40 MG/0.4 ML INJ SUBCUT (20:39)
--- NOTE | 2022-05-29 21:42 | PC.NURSE ---
Shift note: No hypoglycemic episode recorded this shift, Blood glucose level were 215 and 243 at 1730 and 2100 respectively and insulin given as per sliding scale. Denied pain and SoB.
--- NOTE | 2022-05-30 02:06 | PC.NURSE ---
Pt feeling Light headed with visual changes @ 0000; BG was 58, Snack given (Pt had two pieces peanut butter toast, two yogurts). @ 0150 Symptoms returned; BG was 69; Snack given (Coosa juice with sugar pk added and ice cream).
[2022-05-30 03:18] VITALS: BP 131/83; PULSE 82; RESP 16; TEMP 36.9; O2SAT 92
--- NOTE | 2022-05-30 04:18 | PC.NURSE ---
Pt remained asymptomatic with Hypoglycemia after 0200 Snack. (See previous note). Pt up IND in room. VS unremarkable. Tele NSR. Reporting zero pain. Afebrile.
[2022-05-30 07:00] VITALS: BP 154/92; PULSE 83; PULSE 86; RESP 16; TEMP 36.7; O2SAT 89
[2022-05-30 07:17] LABS: Basophils Absolute Auto 0.04 K/uL (0.00-0.30); Basophils Percent Auto 0.4 % (0.0-3.0); Eosinophils Absolute Auto 0.24 K/uL (0.00-0.50); Eosinophils Percent Auto 2.6 % (0.0-7.0); Hemoglobin* 9.8 gm/dL (12.0-16.0); Immature Granulocytes Abs Auto 0.03 K/uL (0.00-0.30); Immature Granulocytes Pct Auto 0.3 %; Lymphocytes Absolute Auto 1.97 K/uL (0.90-2.90); Lymphocytes Percent Auto 21.4 % (20-44); Mean Corpuscular HGB Conc 33 gm/dL (32-36); Mean Corpuscular Hemoglobin 30 pg (26-34); Mean Corpuscular Volume 93 fL (80-100); Monocytes Percent Auto 7.5 % (0.0-11.0); Neutrophils Absolute Auto 6.22 K/uL (1.7-7.0); Neutrophils Percent Auto 67.8 % (42.0-72.0); Platelet Count* 568 K/uL (140-440); RDW Coefficient of Variation % 12.9 % (11.5-15.5); Red Blood Count 3.23 m/uL (4.00-5.20); White Blood Count* 9.19 K/uL (4.50-11.00)
[2022-05-30 07:24] LABS: Chloride* 103 mmol/L (96-114); Sodium* 134 mmol/L (135-149)
[2022-05-30 07:25] LABS: Potassium* 4.3 mmol/L (3.6-5.1)
[2022-05-30 07:27] LABS: Est. Creatinine Clearance* 46.73; Estimated Glomerular Filt Rate 64 ml/min
[2022-05-30 07:28] LABS: Blood Urea Nitrogen* 25 mg/dL (7-30); Calcium* 7.7 mg/dL (8.4-10.6); Carbon Dioxide* 31 mmol/L (20-32); Glucose* 72 mg/dL (60-115)
[2022-05-30 07:31] LABS: Slide Review Reflex No
[2022-05-30] MEDS: POTASSIUM CHLORIDE 10 MEQ CAPSULE ER PO (08:49)
[2022-05-30] MEDS: LORATADINE 10 MG TABLET PO (08:50)
[2022-05-30] MEDS: SPIRONOLACTONE 25 MG TABLET PO (08:50)
[2022-05-30] MEDS: METOPROLOL TARTRATE 25 MG TABLET PO (08:50)
[2022-05-30] MEDS: ASPIRIN 81 MG TABLET EC PO (08:50)
[2022-05-30] MEDS: lisinopriL 10 MG TABLET PO (08:50)
[2022-05-30] MEDS: FUROSEMIDE 40 MG TABLET PO (08:51)
[2022-05-30] MEDS: GLIMEPIRIDE 4 MG TABLET PO (08:55)
[2022-05-30 11:00] VITALS: PULSE 87; RESP 18; O2SAT 98
[2022-05-30 11:14] VITALS: BP 156/85; PULSE 83; RESP 16; TEMP 36.7
--- NOTE | 2022-05-30 15:13 | PC.NURSE ---
Saline lock removed from right arm. Discharge instructions went over with patient. All questions were answered and forms were signed. Patient escorted to front entrance via wheelchair and nursing staff.
--- NOTE | 2022-05-30 16:27 | PM.DS1 ---
DS: Providers Provider Time Seen by Provider: 10:30 Date Seen: 05/30/22 Date of admission: 05/29/22 07:00 Primary care physician: Carlin Trinh MD Admitting Clinician: Shan Bhatt MD Consults: 05/28/22 17:34 Consult to Nutrition [CONS] Routine Comment: Reason for consult:: Nutritional Consult Attending Physician on discharge: José Miguel Marsh MD Date of Discharge: 05/30/22 DS: Diagnosis Discharge Diagnosis (1) Dyspnea: Status: Acute (2) Congestive heart failure: Status: Acute Problem details: - on admission, noted to have pulmonary edema, bilateral pleural effusions, lower extremity edema, orthopnea and PND - IV Furosemide given in ED and upon admission - Increase home dose of Lasix, add low dose Spironolactone as well with close monitoring of electrolytes - Increase home dose of Metoprolol - has outpatient Cardiology f/u scheduled in June (3) NYHA class 3 heart failure with preserved ejection fraction: Status: Acute (4) Mitral regurgitation: Status: Acute Problem details: TTE 04/2022: Final Impressions: 1. Normal LV size, mildly increased wall thickness, normal global systolic function with an estimated EF of 65 - 70%. 2. Right ventricular cavity size is normal, global systolic RV function is normal. 3. Normal left atrium size. 4. The aortic valve is sclerotic, no stenosis and trivial regurgitation. 5. The mitral valve is tethered, moderate mitral regurgitation. 6. Tricuspid valve is normal. 7. Trivial pericardial effusion. - Follow-up with cardiology on June 26, medical management in the meantime (5) Normocytic anemia: Status: Acute Problem details: - no evidence of acute bleeding (6) Hypokalemia: Status: Acute (7) Hyponatremia: Status: Acute (8) Hypertension: Status: Acute (9) Hyperlipidemia: Status: Acute Problem details: - Recommend statin as outpatient (10) Tobacco use: Status: Acute Problem details: - Patch in place, recommend smoking cessation DS: Summary Hospital Course Hospital Course: Twila Bryant is a 62 year old female admitted through the emergency department with progressive edema over the past 6+ weeks and 2 days of dyspnea.? Patient reports that starting before Goldy she was noting swelling in her feet and ankles bilaterally.? This is gotten progressively worse over the last 6 weeks or so.? She was started on furosemide 10 mg daily.? This did not seem to help.? The dose was increased gradually to 20 mg twice a day yesterday.? Yesterday she noted increased trouble breathing.? She had orthopnea and nocturnal dyspnea she was not not able to sleep well last night.? Because that she came to the emergency room. She has no previous history of diagnosis of heart failure.? On 05/11/2022 she had an echocardiogram which showed normal left ventricular size and function with an ejection fraction of 65-70%.? She had normal right ventricular size and function.? Aortic valve was sclerotic without stenosis.? The mitral valve is tethered with moderate mitral regurgitation.? She was referred to Cardiology for her mitral regurgitation and has an appointment on June 26. She has a previous history of SVT.? There was an attempt at ablation for this years ago which was apparently unsuccessful though she reports that she has not had an episode of SVT in years.? She is not aware of palpitations or tachy dysrhythmia. She does not have a history of coronary disease.? She has not had any chest pain. She has not had cold or cough or fever.? She has been smoking for about 40 years half pack of cigarettes per day but does not have a diagnosis of COPD. She has diabetes mellitus.? Blood sugars have been poorly controlled until recently when her blood sugars have been better controlled and occasionally too low.? When she woke up this morning her blood sugar was 59.? Three weeks ago she was started on Lantus 10 units at bedtime.? That has been increased to 20 units at bedtime.? She also takes glimepiride 4 mg daily. In hospital we initially gave IV furosemide and then later doubled her dose of oral furosemide to 40 mg twice daily. In the process she has lost 2.2 kg from 73 kg down to 70.8 kg on the day of discharge. She is advised to follow up with her primary care physician in this regard. In-hospital patient was having nighttime hypoglycemic events. As such we changed her administration of Lantus insulin to 20 units in the morning rather than 20 units at bedtime. She is advised to follow up with her primary care physician in this regard. Status at Discharge Functional status at discharge: independent ambulation Overall status at discharge: patient is progressing back to baseline Time Spent with Patient Time attestation: Total time spent providing and/or coordinating discharge services: Time spent: Greater than 30 minutes Exam Narrative: Exam Narrative: Appears comfortable and in no acute distress. Vision and hearing are grossly normal. Angry disposition for having to be in the hospital. Nevertheless cooperative and friendly. Weight down to 70.8 kg, was 73 kg on admission. Blood sugars last night around midnight at at 58. Increases 69 after eating and drinking. Lungs clear to auscultation. Heart tones with regular rhythm. Still has pitting edema pretibially bilaterally. Independent transfer, station, and gait. No tremor, asterixis, or ataxia. Const: Vital Signs, click to edit/add: Vital Signs - 24 hr 05/29/22 19:00 05/29/22 22:44 05/29/22 23:00 Temperature 98.1 F 98.1 F Pulse Rate 83 Pulse Rate [Left A pical] Pulse Rate [Pulse Oximeter] 81 79 Respiratory Rate 18 16 Blood Pressure Blood Pressure [Le ft Arm] 133/87 116/71 Pulse Oximetry 91 92 [facility] Room [facility] 05/29/22 23:35 05/30/22 03:18 05/30/22 07:00 Temperature 98.4 F Pulse Rate Pulse Rate [Left A pical] 82 Pulse Rate [Pulse Oximeter] 79 82 Respiratory Rate 16 16 16 Blood Pressure Blood Pressure [Le ft Arm] 131/83 Pulse Oximetry 92 [facility] 05/30/22 07:00 05/30/22 07:00 05/30/22 11:14 Temperature 98.1 F 98.1 F Pulse Rate 83 83 Pulse Rate [Left A pical] Pulse Rate [Pulse Oximeter] 86 Respiratory Rate 16 16 Blood Pressure 156/85 H Blood Pressure [Le ft Arm] 154/92 H Pulse Oximetry 89 [facility] 05/30/22 11:00 Temperature Pulse Rate Pulse Rate [Left A pical] Pulse Rate [Pulse Oximeter] 87 Respiratory Rate 18 Blood Pressure Blood Pressure [Le ft Arm] Pulse Oximetry 98 [facility] DS: Data Data Completed and Pending Labs on day of discharge: Labs from last 24 hours 05/30/22 05/30/22 05:59 05:59 WBC 9.19 RBC 3.23 L Hgb 9.8 L Hct 30.0 L MCV 93 MCH 30 MCHC 33 RDW Coeff of Yefri 12.9 Plt Count 568 H Neut % (Auto) 67.8 Lymph % (Auto) 21.4 [place] % (Auto) 7.5 Eos % (Auto) 2.6 Baso % (Auto) 0.4 Neut # (Auto) 6.22 Lymph # (Auto) 1.97 [place] # (Auto) 0.70 Eos # (Auto) 0.24 Baso # (Auto) 0.04 Sodium 134 L Potassium 4.3 Chloride 103 Carbon Dioxide 31 BUN 25 Creatinine 1.0 Estimated Creat Clear 46.73 Estimated GFR 64 Glucose 72 Calcium 7.7 L Imaging Chest x-ray: Attestation: I have reviewed the pertinent imaging results. Radiologist's impression: Left basilar pleural effusion with diffusely increased interstitial markings likely representing pulmonary edema and/or developing infiltrates. CT angiogram of the chest: Attestation: I have reviewed the pertinent imaging results. Radiologist's impression: Left basilar pleural effusion with diffusely increased interstitial markings likely representing pulmonary edema and/or developing infiltrates. Discharge Plan Discharge Disposition: Home, Self-Care Date of Admission: 05/29/22 07:00 Attending Provider on Discharge: José Miguel Marsh Primary Care Provider: Carlin Trinh Condition: Unchanged Anticipated Discharge Date/Time: 05/30/22 12:05 Discharge Medications: New insulin glargine [Lantus Solostar U-100 Insulin] 100 unit/mL (3 mL) insulin pen 20 unit subcut QAM Qty: 15 2RF Rx Instructions: No longer take at bedtime, rather take every morning. furosemide 40 mg Tablet 40 mg PO BID@0800,1400 30 Days Qty: 60 2RF potassium chloride 10 mEq Capsule, Extended Release 10 meq PO BIDWM 30 Days Qty: 60 2RF spironolactone 25 mg Tablet 25 mg PO DAILY 30 Days Qty: 30 2RF metoprolol tartrate 25 mg Tablet 25 mg PO BID 30 Days Qty: 60 2RF Continued loratadine [Claritin] 10 mg tablet 10 mg PO DAILY aspirin [Adult Low Dose Aspirin] 81 mg tablet,delayed release (DR/EC) 81 mg PO DAILY glimepiride 4 mg tablet 4 mg PO QAM Qty: 90 0RF Rx Instructions: administer with breakfast lisinopril 10 mg tablet 10 mg PO DAILY metformin 500 mg tablet 500 mg PO QDAY Qty: 90 3RF Discontinued furosemide [Lasix] 20 mg tablet 20 mg PO BID Qty: 90 3RF metoprolol tartrate 25 mg tablet 12.5 mg PO BID Qty: 120 0RF insulin glargine [Lantus Solostar U-100 Insulin] 100 unit/mL (3 mL) insulin pen 20 unit subcut QPM Qty: 15 0RF No Action (DME) Blood Glucose Test Strip See Rx Instructions .Route Rx Instructions: Use to check blood glucose 3 times daily (DME) pen needle, diabetic [Comfort EZ Pen [place]] 31 gauge x 3/16 needle See Rx Instructions .Route Qty: 100 3RF Rx Instructions: Patient to use BID (DME) FreeStyle Liborio 2 [place] Misc See Rx Instructions .Route Qty: 1 0RF Rx Instructions: As directed (DME) FreeStyle Liborio 2 Sensor Kit See Rx Instructions .Route Qty: 1 0RF Rx Instructions: As directed Discharge Orders: Discharge Order (Routine); Ordered 05/30/22 Ordered By: José Miguel Marsh Patient Education: Metoprolol (By mouth), Spironolactone (By mouth), Furosemide (By mouth), Potassium Chloride (By mouth), Insulin Glargine (By injection) (Lantus, Lantus SoloStar, [place], [place]), Heart Failure (GEN), Hypoglycemia in a Person with Diabetes (GEN), Low-Sodium Diet (GEN), What to Do if Your Blood Sugar is Low (GEN) Additional Instructions: 1. Keep cardiology appointment as already scheduled; 2. Continue to work with your primary care physician regarding blood glucose management efforts; 3. Recommend discontinue use of tobacco products all together - consider alternate healthy measures instead of smoking tobacco. Activity Level: No Restrictions and Activity as Tolerated Discharge Diet: Diabetic and 2 gm Sodium Follow Up Appointments: Carlin Trinh MD [Primary Care Provider] - 06/03/22 9:00 am (Please call if you have any questions.) Forms: [employer]ossee Info Instructions
== END 2022-05-30 13:00 | disposition home or self-care (01) | DRG 194 ==
LOC: ED 17:33 → MEDSURG 18:01
PROVIDERS: Admitting Provider Family Medicine; Emergency Provider Emergency Medicine Emergency Medical Services; PCP Internal Medicine; Visit Provider Family Medicine
DX: I11.0 Hypertensive heart disease with heart failure (principal); I50.31 Acute diastolic (congestive) heart failure; I34.0 Nonrheumatic mitral (valve) insufficiency; E11.9 Type 2 diabetes mellitus without complications; E78.5 Hyperlipidemia, unspecified; R06.00 Dyspnea, unspecified; D64.9 Anemia, unspecified; E87.6 Hypokalemia; E87.1 Hypo-osmolality and hyponatremia; R60.9 Edema, unspecified; Z79.4 Long term (current) use of insulin; Z79.84 Long term (current) use of oral hypoglycemic drugs; F17.210 Nicotine dependence, cigarettes, uncomplicated
CPT/HCPCS: 36415; 71045; 71260; 80048; 82962; 83735; 83880; 84484; 85025; 85379; 86140; 87631; 93005; 94761; 99285; G0378; A9270; J1650; J1940; Q9967; S4990

== ENCOUNTER 2022-06-22 09:21 | Outpatient (CLI) | payer BC, SELFPAY | END 2022-06-22 09:22 | disposition home or self-care (01) | PROVIDERS: PCP Internal Medicine; Visit Provider Internal Medicine | DX: I10 Essential (primary) hypertension (principal); E87.6 Hypokalemia; E87.1 Hypo-osmolality and hyponatremia; E78.5 Hyperlipidemia, unspecified; E11.649 Type 2 diabetes mellitus with hypoglycemia without coma | CPT/HCPCS: 80053 ==

== ENCOUNTER 2022-07-28 09:31 | Outpatient (CLI) | payer SELFPAY | END 2022-07-28 09:32 | disposition home or self-care (01) | LOC: NFLDREF 09:32 | PROVIDERS: PCP Internal Medicine; Visit Provider Internal Medicine | DX: E11.9 Type 2 diabetes mellitus without complications (principal); I10 Essential (primary) hypertension; E87.6 Hypokalemia; E87.1 Hypo-osmolality and hyponatremia; E78.5 Hyperlipidemia, unspecified | CPT/HCPCS: 80053 ==

== ENCOUNTER 2023-03-24 10:25 | Outpatient (CLI) | payer OTHER, SELFPAY | END 2023-03-24 10:26 | disposition home or self-care (01) | LOC: NFLDREF 10:26 | PROVIDERS: PCP Internal Medicine; Visit Provider Internal Medicine | DX: I10 Essential (primary) hypertension (principal) | CPT/HCPCS: 80048 ==

== ENCOUNTER 2023-05-03 15:58 | Outpatient (CLI) | payer OTHER, SELFPAY ==
--- OUTSIDE RECORDS SUMMARY | 2023-05-03 16:02 | XMS_ITS | Clinical Summary ---
Author Name Unknown Organization [facility] Address [place], [place] [address] Care Team Providers Care Television Presenter Name Role Phone Nabor Arellano MD Primary Care Provider [phone] Allergies No known active allergies Medications Medication Sig Dispensed Refills Start Date End Date Status furosemide (LASIX) 40 mg tablet Take 40 mg by mouth two times daily. 0 05/30/2022 Active glimepiride (AMARYL) 4 mg tablet TAKE 1 TABLET BY MOUTH EVERY MORNING WITH BREAKFAST. 0 05/27/2022 Active insulin glargine, U-100, 100 unit/mL (3 mL) pen 10 UNIT (0.1 ML) SUBCUTANEOUSLY EVERY EVENING FOR DIABETES MELLITUS 0 05/05/2022 Active potassium chloride (MICRO-K) 10 mEq Controlled-release capsule TAKE 1 CAPSULE BY MOUTH TWICE A DAY WITH MEALS 0 05/30/2022 Active spironolactone (ALDACTONE) 25 mg tablet Take 25 mg by mouth once daily. 0 05/30/2022 Active bd insulin pen needle uf mini 31 gauge x 3/16 PATIENT TO USE ONCE DAILY 0 05/11/2022 Active FreeStyle Liborio 2 Sensor DIRECTED 0 06/11/2022 Active FreeStyle Liborio 2 [place] DIRECTED 0 05/28/2022 Active lisinopriL (PRINIVIL; ZESTRIL) 10 mg tabletIndications: Essential hypertension Take 1 Tablet (10 mg) by mouth two times daily. 180 Tablet 0 06/18/2022 Active metoprolol tartrate (LOPRESSOR) 25 mg tabletIndications: Essential hypertension Take 1 Tablet (25 mg) by mouth two times daily. 180 Tablet 0 06/18/2022 Active Active Problems Problem Noted Date Diagnosed Date Lumbar degenerative disc disease 03/30/2012 Diabetes mellitus, type 2 03/29/2012 Hypertension 03/29/2012 Paroxysmal supraventricular tachycardia 05/31/19 08 Family History Medical History Relation Name Comments Good Health Father Good Health Mother Relation Name Status Comments Father Mother Social History Tobacco Use Types Packs/Day Years Used Date Smoking Tobacco: Every Day Cigarettes Smokeless Tobacco: Never Tobacco Cessation:Ready to Q uit: No; Counseling Given: Yes Comments:1/3 pack eevery day ATQ Alcohol Use Standard Drinks/Week Comments Yes 10 (1 standard drink = 0.6 oz pu re alcohol) occasionally, Social Connections Answer Date Recorded Frequency of Communication with Friends and Fami ly Not on file 04/19/2021 Financial Resource Strain Answer Date R ecorded Difficulty of Paying Living Expenses Not on file 04/19/2021 Difficulty of Paying Living Expenses Not on file 04/19/2021 Sex and Gender Information Value Date Recorded Sex Assigned at Not on file Gender Identity Not on file Sexual Orientation Not on file Obstetrics History Last Filed Vital Signs Vital Sign Reading Time Taken Comments Blood Pressure 168/76 06/18/2022 2:25 PM OCEAN BIOLOGIST Pulse 84 06/18/2022 2:25 PM OCEAN BIOLOGIST Temperature 38.1 ??C (100.5 ??F) 06/09/2007 5:[address] Respiratory Rate - - Oxygen Saturation 97% 06/18/2022 2:25 PM OCEAN BIOLOGIST Inhaled Oxygen Concentration - - Weight 57.6 kg (127 lb) 06/18/2022 2:25 PM OCEAN BIOLOGIST Height 157.5 cm (5' 2) 06/18/2022 2:25 PM OCEAN BIOLOGIST Body Mass Index 23.23 06/18/2022 2:25 PM OCEAN BIOLOGIST Plan of Treatment Health Maintenance Due Date Last Done Comments COVID-19 vaccine series (#1) 1961 Pneumococcal series for age 6-64 (1 of 2 - PCV) 1966 Tdap 1972 Depression screening for age 12+ 1973 HIV for age 15-65 1976 Hepatitis C screening for age 18-79 1979 Tetanus booster 1981 Colonoscopy through age 75 2006 Lipids for age 45-75 2006 Mammogram for age 45-75 2006 Zoster (shingles) series for age 50+ (1 of 2) 03/03/20 11 Pap test for age 21-65 09/30/2013 09/30/2010 Influenza for age 50-64 12/18/2022 BMI (ht and wt on same day) for age 18+ 06/19/2023 0 06/18/2022 Care Teams Television Presenter Relationship Specialty Start Date End Date Nabor Arellano MD [address] [place] [address] PCP - General Family Practice 08/27/20
== END 2023-05-03 15:59 | disposition home or self-care (01) ==
LOC: NFLDREF 16:01
PROVIDERS: PCP Internal Medicine; Visit Provider Internal Medicine
DX: I10 Essential (primary) hypertension (principal)
CPT/HCPCS: 80053

== ENCOUNTER 2023-06-08 09:05 | Outpatient (CLI) | payer OTHER, SELFPAY ==
--- OUTSIDE RECORDS SUMMARY | 2023-06-08 09:22 | XMS_ITS | Clinical Summary ---
Author Name Unknown Organization [facility] Address [place], [place] [address] Care Team Providers Care Director Social Service Name Role Phone Nabor Arellano MD Primary Care Provider [phone] Allergies No known active allergies Medications Medication [...] DIRECTED 0 06/11/2022 Active FreeStyle Liborio 2 [place] DIRECTED 0 05/28/2022 Active lisinopriL (PRINIVIL; ZESTRIL) [...] Comments Blood Pressure 168/76 06/18/2022 2:25 PM SURGICAL APPLIANCE FITTER Pulse 84 06/18/2022 2:25 PM SURGICAL APPLIANCE FITTER Temperature 38.1 ??C (100.5 ??F) 06/09/2007 5:[address] Respiratory Rate - - Oxygen Saturation 97% 06/18/2022 2:25 PM SURGICAL APPLIANCE FITTER Inhaled Oxygen Concentration - - Weight 57.6 kg (127 lb) 06/18/2022 2:25 PM SURGICAL APPLIANCE FITTER Height 157.5 cm (5' 2) 06/18/2022 2:25 PM SURGICAL APPLIANCE FITTER Body Mass Index 23.23 06/18/2022 2:25 PM SURGICAL APPLIANCE FITTER Plan of Treatment Health Maintenance Due Date [...] age 18+ 06/19/2023 0 06/18/2022 Care Teams Director Social Service Relationship Specialty Start Date End Date Nabor Arellano MD [address] [place] [address] PCP - General Family Practice 08/27/20
== END 2023-06-08 09:06 | disposition home or self-care (01) ==
PROVIDERS: PCP Internal Medicine; Visit Provider Internal Medicine Nephrology
DX: E11.21 Type 2 diabetes mellitus with diabetic nephropathy (principal); N18.4 Chronic kidney disease, stage 4 (severe)
CPT/HCPCS: 82043; 82570; 87086

== ENCOUNTER 2023-10-13 09:43 | Outpatient (CLI) | payer OTHER, SELFPAY ==
--- OUTSIDE RECORDS SUMMARY | 2023-10-13 09:45 | XMS_ITS | Clinical Summary ---
Author Organization [facility] Address [place], [place] [address] Care Team Providers Care Emergency Department Coordinator Name Role Phone Nabor Arellano MD Primary Care Provider [phone] Allergies No known active allergies Medications Medication Sig Dispensed Refills Start Date End Date Status furosemide (LASIX) 40 mg tablet Take 40 mg by mouth two times daily. 05/30/2022 Active glimepiride (AMARYL) 4 mg tablet TAKE 1 TABLET BY MOUTH EVERY MORNING WITH BREAKFAST. 05/27/2022 Active insulin glargine, U-100, 100 unit/mL (3 mL) pen 10 UNIT (0.1 ML) SUBCUTANEOUSLY EVERY EVENING FOR DIABETES MELLITUS 05/05/2022 Active potassium chloride (MICRO-K) 10 mEq Controlled-release capsule TAKE 1 CAPSULE BY MOUTH TWICE A DAY WITH MEALS 05/30/2022 Active spironolactone (ALDACTONE) 25 mg tablet Take 25 mg by mouth once daily. 05/30/2022 Active bd insulin pen needle uf mini 31 gauge x 3/16 PATIENT TO USE ONCE DAILY 05/11/2022 Active FreeStyle Liborio 2 Sensor DIRECTED 06/11/2022 Active FreeStyle Liborio 2 [place] DIRECTED 05/28/2022 Active lisinopriL (PRINIVIL; ZESTRIL) 10 mg tabletIndications: Essential hypertension Take 1 Tablet (10 mg) by mouth two times daily. 180 Tablet 06/18/2022 Active metoprolol tartrate (LOPRESSOR) 25 mg tabletIndications: Essential hypertension Take 1 Tablet (25 mg) by mouth two times daily. 180 Tablet 06/18/2022 Active Active Problems Problem Noted Date [...] Comments Blood Pressure 168/76 06/18/2022 2:25 PM MANAGER UTILIZATION MANAGEMENT Pulse 84 06/18/2022 2:25 PM MANAGER UTILIZATION MANAGEMENT Temperature 38.1 ??C (100.5 ??F) 06/09/2007 5:[address] Respiratory Rate - - Oxygen Saturation 97% 06/18/2022 2:25 PM MANAGER UTILIZATION MANAGEMENT Inhaled Oxygen Concentration - - Weight 57.6 kg (127 lb) 06/18/2022 2:25 PM MANAGER UTILIZATION MANAGEMENT Height 157.5 cm (5' 2) 06/18/2022 2:25 PM MANAGER UTILIZATION MANAGEMENT Body Mass Index 23.23 06/18/2022 2:25 PM MANAGER UTILIZATION MANAGEMENT Plan of Treatment Health Maintenance Due Date Last Done Comments Pneumococcal series for age 6-64 (1 of [...] Pap test for age 21-65 09/30/2013 09/30/2010 COVID-19 vaccine series (2022-24 season) BMI (ht and wt on same day) for age 18+ 06/19/2023 0 06/18/2022 Influenza for age 50-64 12/19/2023 Procedures Procedure Name Priority Date/Time Associated Diagnosis Comments GYNECOLOGICAL PANEL Timed 09/30/2010 1 2:07 PM CDT from Last 3 Months or Most Recently Relevant to Health Maintenance Results * GYNECOLOGICAL PANEL (09/30/2010 12:07 PM CDT) CYTOLOGY CYTOPATHOLOGY REPORT [facility] Status: Final Status ?[id number] CLINICAL INFORMATION Last Date of LMP ? :NA Last Pap Date ?:2003 Last Pap Result ?:NORMAL [place]/Bx done today ? :No HPV Request ?:HPV if ASCUS SPECIMEN SOURCE ?:Cervical/vagina l ThinPrep Vial, screening SPECIMEN ADEQUACY ?:Satisfactory for evaluation No endocervical ? component seen. INTERPRETATION/RES ULT Negative for intraepithelial lesion or malignancy (NIL) Organisms ??Shift in blake suggestive of bacterial vaginosis Cytology 1st Screener ??:yohannes Signed by ?:yohannes This specimen was screened by the FDA approved ThinPrep Imaging System and manually reviewed. NOTE: ??The Pap test is a screening technique, not a diagnostic procedure. ??It is used ??primarily to screen for squamous cancers and precursor lesions. ??Published studies have shown that it is subject to both false negative and false positive results. ??The pap test should not be used as the sole means to diagnose or exclude pre-malignant and malignant lesions. COLLECTED:09/30/10 ? ACCESSIONED: ??10/01/10 ?? SIGNED: ??10/06/10 [facility] PAP [place] CODE NIL [facility] 09/30/2010 12:0 7 PM CDT 10/01/2010 12:07 PM CDT Aylin Garcia MD PATHOLOGY/CYTOLOGY [facility] [place]NAL ZIP [id number] [place] [id number] from Last 3 Months or Most Recently Relevant to Health Maintenance Care Teams Emergency Department Coordinator Relationship Specialty Start Date End Date Nabor Arellano MD [address] [place] [address] PCP - General Family Practice 08/27/20
== END 2023-10-13 09:44 | disposition home or self-care (01) ==
LOC: NFLDREF 09:44
PROVIDERS: PCP Internal Medicine; Visit Provider Internal Medicine
DX: N18.4 Chronic kidney disease, stage 4 (severe) (principal)
CPT/HCPCS: 80053

== ENCOUNTER 2024-09-19 15:29 | Outpatient (CLI) | payer SELFPAY | END 2024-09-19 15:30 | disposition home or self-care (01) | LOC: AMB 09-21 11:17 | PROVIDERS: Visit Provider Family Medicine | DX: I46.9 Cardiac arrest, cause unspecified (principal) ==